=== PATIENT | male | born 1980 | race Hispanic/Latino ===

== ENCOUNTER → 2025-06-08 | Emergency (ER) | payer BC ==
[~2025-06-08] VITALS: Ht 165.1 cm; Wt 83.9 kg
[~2025-06-08] MED LIST: AZIT250T9 PO
[2025-06-08 10:28] LABS: COVID19 (SARS ANTIGEN RAPID) PRESUMPTIVE NEGATIVE (NEGATIVE); INFLUENZA TYPE A Negative For Type A (NEGATIVE); INFLUENZA TYPE B Negative For Type B (NEGATIVE)
[2025-06-08 10:29] LABS: RAPID GROUP A STREP positive (NEGATIVE)
--- NOTE | 2025-06-08 10:59 | ERN ---
ED Note History of Present Illness Stated Complaint: CHILLS, BODY ACHES, FEVER Chief Complaint: Flu Symptoms Time Seen by MD: 09:31 Dictation: 45-year-old male presenting to the emergency department with sore throat cough cold congestion over the past few days. Patient denies any past medical history or allergies. Allergies: Coded Allergies: No Known Drug Allergies (Unverified Allergy, Unknown, 06/08/25) Past Medical History Past Medical History: No Pertinent History Surgical History: None Review of System Dictation Constitutional: Per Hpi Eyes: Negative for injury, pain,redness, and discharge ENT: Per HPI Cardiovascular: Negative for chest pain, palpitations, and edema Respiratory: Per HPI Abdomen/GI: Negative for abdominal pain, nausea, vomiting, diarrhea, and constipation Back: Negative for injury and pain : Negative for injury, bleeding and discharge MS/Extremity: Negative for injury and deformity Skin: Negative for rash, and discoloration Neuro: Negative for headache, weakness, numbness, tingling, and seizure Psych: Negative for suicide ideation, homicidal ideation, and hallucinations Initial Vital Sign VS Vital Signs Date Time Temp Pulse Resp B/P (MAP) Pulse Ox O2 Delivery O2 Flow Rate FiO2 06/08/25 09:30 97.7 75 17 136/80 97 0 06/08/25 10:51 Room Air* 21 Physical Exam Dictation General: awake, alert, NAD Head/Face: Normocephalic, atraumatic Eyes: PERRL, EOMI, vision at baseline ENT: oral cavity clear, TMs clear, erythema to posterior pharynx Neck: Trachea midline, supple, no nuchal rigidity Cardiovascular: RRR, normal S1/S2, No MRGs, no JVD Respiratory: CTAB, no respiratory distress, No rales or wheezes Abdomen: Soft, non-tender, non-distended, normal bowel sounds, no guarding or rebound. Skin: Warm, dry, normal turgor, no rash MS/Extremity: Pulses equal, no cyanosis, neurovascular intact, FROM Neuro: COAx4, GCS 15, strength 5/5, CN 2-12 intact, normal cerebellar exam, normal gait, Psych: Normal behavior, mood, and affect normal Results (Laboratory/Radiology) Laboratory/Radiology Laboratory Tests Test 06/08/25 09:30 Influenza Type A Antigen Negative For Type A Influenza Type B Antigen Negative For Type B SARS-CoV-2 Antigen (Rapid) PRESUMPTIVE NEGATIVE Group A Streptococcus Rapid positive (NEGATIVE) *A Labs Reviewed?: Yes ED Course ED Course Orders Procedure Category Date Status Time Covid19 (Sars Antigen LAB 06/08/25 Complete Rapid) 09:36 Influenza Type A & B, LAB 06/08/25 Complete Rapid 09:36 Rapid (Group A Strep) LAB 06/08/25 Complete 09:36 Ceftriaxone 1g Vial PHA 06/08/25 Complete (Rocephine 1g Inj) 10:30 Current Medications Medications (Trade) Dose Ordered Sig/Aggie Route PRN Reason Start Time Stop Time Status Last Admin Dose Admin Ceftriaxone Sodium (ROCEphine 1G INJ) 1 gm ONCE STAT IM 06/08/25 10:30 06/08/25 10:32 DC 06/08/25 10:35 Vital Signs Date Time Temp Pulse Resp B/P (MAP) Pulse Ox O2 Delivery O2 Flow Rate FiO2 06/08/25 10:51 97.9 77 17 136/78 99 Room Air* 0 21 06/08/25 09:30 97.7 75 17 136/80 97 0 Medical Decision Making MDM MDM: Differential diagnosis: Rationale: Tests considered and ordered secondary to shared decision making include: Previous outside records reviewed: Old ER visits. Risk of complication and/or morbidity or mortality of patient management: None Medications-Per medication reconciliation Need for hospitalization: Patient does not meet criteria for hospitalization. Need for emergency major/minor surgery: No There are no social concerns with this patient. Prescription drug management Prescriptions will include symptomatic care Patient's prior external medical records from other ER visits were reviewed by me as indicated. Prior testing and results from previous visits were reviewed. Prior tests were taken into account with medical decision making and resource utilization, independent historian/historians were used to obtain complete medical history. I independently interpreted the test that were performed, results were reviewed by me and considered findings on radiology if ordered. Medical management and examination interpretation discussions were had by me with other qualified healthcare professionals as indicated for the patient's care. 45-year-old male with strep throat stable exam nontoxic given antibiotics stable for discharge. DX & DISP Disposition: Discharge Departure Impression: Primary Impression: Acute pharyngitis Condition: Stable Scripts Azithromycin (Azithromycin) 250 Mg Tablet 250 MG PO AD for cough for 5 Days, #6 TAB Prov: LAN MEHTA MD 06/08/25 Referrals: SELF,REFERRAL (PCP) LAN MEHTA MD Jun 08, 2025 10:59
[2025-06-08 11:26] VITALS: BP 136/80; PULSE 76; RESP 16; TEMP 98.1; O2SAT 99
== END ==
LOC: EDH 09:26
DX: J02.9 Acute pharyngitis, unspecified (principal); R05.9 Cough, unspecified; R09.89 Other specified symptoms and signs involving the circulatory and respiratory systems; Z20.822 Contact with and (suspected) exposure to COVID-19
CPT/HCPCS: 99284; 87426; 87880; 87804 ×2; 96372; J0696